=== PATIENT | female | born 1955 | race Caucasian/White ===

== ENCOUNTER 2017-08-02 10:59 | Outpatient (CLI) | payer OTHER ==
--- NOTE | 2017-08-03 18:32 | Mammography Report ---
DIGITAL SCREENING MAMMOGRAM: 08/02/2017 CLINICAL INDICATION: A 61-year-old for screening. COMPARISON: 05/2016, 02/2015, 10/2013, 09/2012, 07/2011, 06/2010. TECHNIQUE: Routine CC and MLO projections were obtained of the breasts. FINDINGS: Scattered fibroglandular tissue is present within the breasts. There are no dominant mass es, suspicious microcalcifications, or secondary signs of malignancy. In comparison to the previous studies, there are no significant changes. ASSESSMENT: NO MAMMOGRAPHIC EVIDENCE OF MALIGNANCY. NO SIGNIFICANT INTERVAL CHANGES. RECOMMENDATION: Screening mammography is recommended annually. BIRADS category 1 - negative. STANDARD QUALIFYING STATEMENTS 1. This examination was reviewed with the aid of Computed-Aided Detection (CAD). 2. A negative or benign imaging report should not delay biopsy if clinically suspicious findings are present. Consider surgical consultation if warranted. More than 5% of cancers are not identified b y imaging. 3. Dense breasts may obscure an underlying neoplasm. JOB #: [id number] EXT JOB #:[id number]
== END 2017-08-02 11:00 | disposition home or self-care (01) ==
LOC: DI 10:59
PROVIDERS: ATTEND Physician Assistant Medical
DX: Z12.31 Encounter for screening mammogram for malignant neoplasm of breast (principal)
CPT/HCPCS: 77067

== ENCOUNTER 2018-10-05 11:42 | Outpatient (CLI) | payer OTHER ==
--- NOTE | 2018-10-08 09:36 | Mammography Report ---
Reason: SCREENING MAMMO Procedure Date: 10/05/2018 Accession Number: [id number] / [id number] Procedure: TONYA - Screening Mammo w/Neil CPT Code: FULL RESULT: EXAM: Screening Mammo w/Neil DATE: 10/05/2018 12:11 PM CLINICAL HISTORY: Screening encounter. History of bilateral surgical nipple biopsy in 1994. History of 20 years of hormonal therapy discontinued in 1994. TECHNIQUE: Bilateral CC and MLO views were obtained. COMPARISON: 08/02/2017 through 10/31/2013. FINDINGS: The breasts demonstrate scattered fibroglandular densities bilaterally. The ultrasound characterized left breast cyst in the left breast lower outer quadrant is stable, typically benign. No suspicious masses, clustered microcalcifications, or regions of architectural distortion are identified. IMPRESSION: Benign findings RECOMMENDATION: Routine annual screening unless otherwise clinically indicated. BIRADS CATEGORY 2: Benign findings STANDARD QUALIFYING STATEMENTS: 1. This examination was not reviewed with the aid of Computer-Aided Detection (CAD). 2. A negative or benign imaging report should not preclude biopsy if clinically suspicious findings are present. 3. Dense breasts may obscure an underlying neoplasm. 4. This examination was reviewed with the aid of 3D breast imaging (tomosynthesis).
== END 2018-10-05 11:43 | disposition home or self-care (01) ==
LOC: DI 11:42
DX: Z12.31 Encounter for screening mammogram for malignant neoplasm of breast (principal)
CPT/HCPCS: 77063; 77067

== ENCOUNTER 2019-06-04 12:06 | Outpatient (CLI) | payer OTHER ==
[2019-06-04 12:28] LABS: BASOPHILS # (AUTO) 0.1 10^3/uL (0.0-0.1); BASOPHILS % (AUTO) 0.5 %; EOSINOPHILS # (AUTO) 0.1 10^3/uL (0.0-0.7); HGB - HEMOGLOBIN 13.4 g/dL (12.0-16.0); LYMPHOCYTES # (AUTO) 1.8 10^3/uL (1.5-3.5); LYMPHOCYTES % (AUTO) 17.2 %; MEAN CORPUSCULAR HEMOGLOBIN 28.7 pg (27.0-31.0); MEAN CORPUSCULAR HGB CONC 31.6 g/dL (32.0-36.0); MEAN CORPUSCULAR VOLUME 90.8 fL (81.0-99.0); MEAN PLATELET VOLUME 9.2 fL (7.9-10.8); MONOCYTES % (AUTO) 9.5 %; NEUTROPHILS # (AUTO) 7.5 10^3/uL (1.5-6.6); NEUTROPHILS % (AUTO) 71.5 %; PLT - PLATELET COUNT 262 10^3/uL (130-450); RED BLOOD COUNT 4.67 10^6/uL (4.20-5.40); RED CELL DISTRIBUTION WIDTH 13.6 % (12.0-15.0); WHITE BLOOD COUNT 10.5 x10^3/uL (4.8-10.8)
[2019-06-04 12:49] LABS: ALBUMIN 4.5 g/dL (3.2-5.5); ALBUMIN/GLOBULIN RATIO 1.5 (1.0-2.2); BILIRUBIN,TOTAL 1.1 mg/dL (0.2-1.0); CALCIUM 9.4 mg/dL (8.5-10.3); CREATININE 0.6 mg/dL (0.4-1.0); TOTAL PROTEIN 7.6 g/dL (6.7-8.2)
== END 2019-06-04 12:07 | disposition home or self-care (01) ==
LOC: LAB 12:06
PROVIDERS: ATTEND Obstetrics & Gynecology
DX: Z01.810 Encounter for preprocedural cardiovascular examination (principal); Z01.812 Encounter for preprocedural laboratory examination; N81.4 Uterovaginal prolapse, unspecified
CPT/HCPCS: 36415; 80053; 85025; 86850; 86900; 86901; 93005

== ENCOUNTER 2019-06-05 10:19 | Day surgery (SDC) | payer OTHER ==
[2019-06-05] MEDS ORDERED: MIDAZOLAM 2 MG/2 ML VIAL IVP ONE (10:20)
[2019-06-05] MEDS ORDERED: CEFAZOLIN SODIUM IN 0.9 % NACL 2 GM/100 ML BAG IV ONE (10:38)
[2019-06-05 10:44] VITALS: BP 152/74
[2019-06-05] MEDS ORDERED: BUPIVACAINE 0.5% PF 10 ML VIAL ONE (11:45)
[2019-06-05] MEDS ORDERED: BUPIVACAINE 0.5%-EPI 1:200000 PF 10 ML VIAL ONE (11:46)
--- NOTE | 2019-06-05 11:51 | ANESTHESIA ---
Pre-Anesthesia VS, & Labs - Diagnosis uterine prolapse, rectocele, cystocele - Procedure Laparoscopic assisted vaginal hysterectomy, cystoscopy, A/P repair, colporrhaphy Vital Signs: Temp Pulse Resp BP Pulse Ox 36.2 C L 80 16 152/74 H 99 06/05/19 10:41 06/05/19 10:41 06/05/19 10:41 06/05/19 10:41 06/05/19 10:41 Height 6 ft Weight (kg) 86.2 kg - NPO >8 hours - Is Patient ?: No - Lab Results Lab results reviewed: Yes Home Medications and Allergies Home Medications: Ambulatory Orders Estrogens, Conjugated Cream [Premarin Cream] 1 applic VG QPM 06/04/19 Gabapentin 300 mg PO DAILY 06/04/19 Multivitamin [Multivitamins] 1 each PO DAILY 06/04/19 Propranolol HCl [Propranolol HCl ER] 60 mg PO BID 06/04/19 Triamterene/Hydrochlorothiazid [Triamterene-Hctz 37.5-25 mg Tb] 1 each PO DAILY 06/04/19 raNITIdine HCl [Zantac] 150 mg PO QPM 06/04/19 Rosuvastatin Calcium [Crestor] 10 mg PO DAILY 06/22/14 Estrogens, Conjugated Cream [Premarin Cream] 1 applic VG QPM 06/04/19 Gabapentin 300 mg PO DAILY 06/04/19 Multivitamin [Multivitamins] 1 each PO DAILY 06/04/19 Propranolol HCl [Propranolol HCl ER] 60 mg PO BID 06/04/19 Triamterene/Hydrochlorothiazid [Triamterene-Hctz 37.5-25 mg Tb] 1 each PO DAILY 06/04/19 raNITIdine HCl [Zantac] 150 mg PO QPM 06/04/19 Allergies/Adverse Reactions: Allergies Allergy/AdvReac Type Severity Reaction Status Date / Time Sulfa (Sulfonamide Allergy Intermediate Rash Verified 06/05/19 10:55 Antibiotics) Penicillins Allergy Mild Rash Verified 06/05/19 10:55 atorvastatin [From Lipitor] AdvReac muscle Verified 06/05/19 10:55 cramps simvastatin [From Zocor] AdvReac Nausea Verified 06/05/19 10:55 Anes History & Medical History - Anesthetic History Anesthesia Complications: reports: No previous complications Family history of Anesthesia Complications: Denies Family history of Malignant Hyperthermia: Denies - Medical History Cardiovascular: reports: Hypertension, High cholesterol, Atrial fibrillation, Arrhythmia Pulmonary: reports: None Gastrointestinal: reports: GERD Urinary: reports: Other Musculoskeletal: reports: None Endocrine/Autoimmune: reports: None Skin: reports: None Smoking Status: Never smoker - Surgical History Eyes Ears Nose Throat (EENT): Tonsil/Adenoidectomy Cardiothoracic: Other (ablation x4, cardioversion x5 (all effective)) Orthopedic: Other Exam General: Alert, Oriented x3, Cooperative Dental: WNL Mouth Openin Fingerbreadth Neck Mobility: Normal Mallampati classification: II Thyromental Distance: 4-6 cm Respiratory: Lungs clear, Normal breath sounds, No respiratory distress, No accessory muscle use Cardiovascular: Regular rate Neurological: Normal speech Mental/Cognitive Status: Alert/Oriented X3, Normal for patient Cognitive Status: Within normal limits Plan Anesthesia Type: General, Transverse Abdominis Plane (TAP) Block (possible) Consent for Procedure(s) Verified and Reviewed: Yes Code Status: Attempt Resuscitation ASA classification: 3-Severe systemic disease Is this case an emergency?: No
[2019-06-05] MEDS ORDERED: METHYLENE BLUE 0.5% 50 MG/10 ML AMPULE ONE (12:25)
[2019-06-05] MEDS ORDERED: LACTATED RINGERS 1,000 ML IV ONE (12:36)
--- NOTE | 2019-06-05 19:39 | CONSULTATION NOTE ---
DATE OF SERVICE: 06/05/2019 Physician: Meeta Wolfe MD PRIMARY CARE PROVIDER: Lesa Medina PA-C CONSULTANT: Paolo Villaseñor MD REASON FOR CONSULTATION: New arrhythmia on telemetry in a preoperative patient. HISTORY: Patient is a anika 63-year-old female who has had 3 ablations for AFib. Two were done at [facility]. When the second ablation was not successful, patient was sent to see yet another EPS specialist at [facility] named Dr. Solorio. Dr. Solorio was contacted at [facility] via the internet Google search for his address. He is no longer at [facility]. I was not aware he was at [facility] now until after I contacted the first group who did the first two ablations, but I did speak to Dr. Leavitt's cardiology team at [facility] about this patient's history. She had a successful ablation in 2014. She can occasionally feel hard knocking in her chest, but for the most part, she has remained in sinus rhythm. She denies chest pain, palpitations, shortness of breath. She was evaluated prior to having elective surgery today for a hysterectomy and anterior and posterior repair. Yesterday's EKG showed sinus rhythm and the patient had a review of systems that was negative. In the preoperative setting, as she was lying on the table, getting ready for surgery, she began feeling palpitations. An EKG was done. She is predominantly sinus with PACs, but there is a question if atrial fibrillation has returned. I am being asked to do a consultation. The surgery has already been canceled. PAST MEDICAL HISTORY 1. Hypertension. 2. Atrial fibrillation as above. 3. Hyperlipidemia. 4. Gastroesophageal reflux disease. ALLERGIES 1. SULFA. 2. PENICILLIN. 3. LIPITOR. 4. ZOCOR. MEDICATIONS 1. Conjugated estrogen via cream 3 times a week in the vagina. 2. Gabapentin 300 mg daily. 3. Multivitamin daily. 4. Propranolol extended release 60 mg capsule b.i.d. 5. Zantac 150 q.p.m. 6. Crestor 10 mg daily. 7. Triamterene with hydrochlorothiazide at 37.54/25 mg daily. SOCIAL HISTORY: She is a nonsmoker, rare alcohol drinker. No recreational substance abuse. FAMILY HISTORY: Negative for arrhythmia or prolonged QT syndrome. REVIEW OF SYSTEMS: A full 10-point review of systems done and negative except for that in HPI. PHYSICAL EXAMINATION VITAL SIGNS: Temperature is 36.2, pulse is 80, blood pressure 152/74, respirations 16, 99% on room air. GENERAL: She is a well-nourished, well-developed white female who looks her stated age in no acute distress. Very matter of fact personality saying, "I'm ready whenever you guys are." HEAD AND NECK: Unremarkable. She has got moist oral mucosa. Normal facial symmetry. Normal speech patterns. Pupils are reactive. Neck is supple. No goiter or bruits or JVD. LUNGS: Clear to auscultation and percussion. She has a mainly regular rate and rhythm with occasional irregular beat. No murmurs, rubs or gallops. HEART: PMI is normally placed. ABDOMEN: Soft, nontender. No organomegaly. Normal bowel sounds. EXTREMITIES: Warm without clubbing, cyanosis or edema. NEUROLOGIC: She is alert and oriented to person, place and time. Has no focal deficits with regard to strength or reflexes. Cranial nerves II-XII appear grossly intact. IMAGING: EKG shows mainly sinus rhythm. Very difficult to see the P-waves. Tele strip shows occasionally every other P-wave not being conducted. EKG and tele strip reviewed with Dr. Filippo Wilde, [facility], since Dr. 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 LABORATORIES: Preoperative labs showed a normal CMP with a mildly elevated bilirubin of 1.1. Hematology showed a normal CBC. ASSESSMENT AND PLAN: Abnormal EKG with a history of atrial fibrillation, s/p ablation. Currently, the EKG shows normal sinus rhythm with occasional nonconducted P-waves. Dr. Wilde feels that this patient is within the realm of normal. The insufflation expected with laparoscopic surgery may cause some bradycardia, but that is to be anticipated he feels. Dr. Wilde feels that patient can go to surgery at this time. However, gynecology would like patient to be seen by Cardiology in person. Once that is done, then he can reschedule this elective hysterectomy. There is no change made to patient's medication. Thank you very much for this interesting consult. TD: 06/05/2019 19:16 DOLLY
== END 2019-06-05 10:20 | disposition home or self-care (01) ==
LOC: SDS 10:19
PROVIDERS: ATTEND Obstetrics & Gynecology
DX: Z53.8 Procedure and treatment not carried out for other reasons (principal); N81.4 Uterovaginal prolapse, unspecified; N81.6 Rectocele; I49.9 Cardiac arrhythmia, unspecified; I10 Essential (primary) hypertension; I48.91 Unspecified atrial fibrillation; E78.5 Hyperlipidemia, unspecified; K21.9 Gastro-esophageal reflux disease without esophagitis
CPT/HCPCS: 93005; J0690; J7120

== ENCOUNTER 2019-08-29 08:00 | Outpatient (CLI) | payer OTHER ==
[2019-08-29 18:53] LABS: BASOPHILS # (AUTO) 0.1 10^3/uL (0.0-0.1); BASOPHILS % (AUTO) 0.6 %; EOSINOPHILS # (AUTO) 0.1 10^3/uL (0.0-0.7); EOSINOPHILS % (AUTO) 1.4 %; HGB - HEMOGLOBIN 13.4 g/dL (12.0-16.0); LYMPHOCYTES # (AUTO) 1.8 10^3/uL (1.5-3.5); MEAN CORPUSCULAR HEMOGLOBIN 29.1 pg (27.0-31.0); MEAN CORPUSCULAR HGB CONC 31.2 g/dL (32.0-36.0); MEAN CORPUSCULAR VOLUME 93.1 fL (81.0-99.0); MEAN PLATELET VOLUME 10.1 fL (7.9-10.8); MONOCYTES # (AUTO) 0.8 10^3/uL (0.0-1.0); NEUTROPHILS # (AUTO) 6.8 10^3/uL (1.5-6.6); NEUTROPHILS % (AUTO) 70.5 %; PLT - PLATELET COUNT 282 10^3/uL (130-450); RED BLOOD COUNT 4.61 10^6/uL (4.20-5.40); RED CELL DISTRIBUTION WIDTH 13.6 % (12.0-15.0); WHITE BLOOD COUNT 9.6 x10^3/uL (4.8-10.8)
[2019-08-29 19:22] LABS: THYROID STIMULATING HORMONE 0.96 uIU/mL (0.34-5.60)
[2019-08-29 19:23] LABS: ALBUMIN 4.5 g/dL (3.2-5.5); ALBUMIN/GLOBULIN RATIO 1.5 (1.0-2.2); BILIRUBIN,TOTAL 0.9 mg/dL (0.2-1.0); CALCIUM 9.4 mg/dL (8.5-10.3); CREATININE 0.7 mg/dL (0.4-1.0); TOTAL PROTEIN 7.6 g/dL (6.7-8.2)
[2019-08-29 19:24] LABS: FREE T4 (FREE THYROXINE) 0.8 ng/dL (0.58-1.64)
== END 2019-08-29 23:59 | disposition home or self-care (01) ==
LOC: LAB.WCP 08:00
PROVIDERS: ATTEND Physician Assistant
DX: L29.8 Other pruritus (principal)
CPT/HCPCS: 36415; 80053; 81599; 83540; 84439; 84443; 84466; 85025

== ENCOUNTER 2019-08-29 15:18 | Outpatient (CLI) | payer OTHER ==
--- NOTE | 2019-08-30 09:39 | XRAY Report ---
Reason: RIGHT FOOT PAIN Procedure Date: 08/29/2019 Accession Number: [id number] / [id number] Procedure: WCP - Foot 3 View RT CPT Code: Final Report FULL RESULT: EXAM: RIGHT FOOT RADIOGRAPHY EXAM DATE: 08/29/2019 03:18 PM. CLINICAL HISTORY: Right foot pain. COMPARISON: None. TECHNIQUE: 3 views. FINDINGS: Bones: Plantar calcaneal spur. No acute fractures or bone lesions. Possible old fracture of the proximal phalanx of the fourth toe. Joints: Normal. No subluxations. Soft Tissues: Normal. No soft tissue swelling. IMPRESSION: 1. No acute abnormality seen in the right foot. 2. Plantar calcaneal spur. RADIA
== END 2019-08-29 23:59 | disposition home or self-care (01) ==
LOC: DI.WCP 15:18
PROVIDERS: ATTEND Family Medicine
DX: M77.31 Calcaneal spur, right foot (principal); L29.8 Other pruritus

== ENCOUNTER 2019-09-05 08:00 | Outpatient (CLI) | payer OTHER | END 2019-09-05 23:59 | disposition home or self-care (01) | LOC: LAB.R 08:00 | PROVIDERS: ATTEND Physician Assistant | DX: L29.8 Other pruritus (principal) | CPT/HCPCS: 87177; 87209 ==

== ENCOUNTER 2019-12-26 08:00 | Outpatient (CLI) | payer OTHER ==
[2019-12-26 16:29] LABS: BASOPHILS # (AUTO) 0.1 10^3/uL (0.0-0.1); BASOPHILS % (AUTO) 0.5 %; EOSINOPHILS # (AUTO) 0.2 10^3/uL (0.0-0.7); EOSINOPHILS % (AUTO) 1.6 %; HGB - HEMOGLOBIN 13.4 g/dL (12.0-16.0); LYMPHOCYTES % (AUTO) 20.5 %; MEAN CORPUSCULAR HEMOGLOBIN 29.7 pg (27.0-31.0); MEAN CORPUSCULAR HGB CONC 32.1 g/dL (32.0-36.0); MEAN CORPUSCULAR VOLUME 92.7 fL (81.0-99.0); MEAN PLATELET VOLUME 10.3 fL (7.9-10.8); MONOCYTES # (AUTO) 0.9 10^3/uL (0.0-1.0); MONOCYTES % (AUTO) 9.2 %; NEUTROPHILS # (AUTO) 6.8 10^3/uL (1.5-6.6); NEUTROPHILS % (AUTO) 67.9 %; PLT - PLATELET COUNT 266 10^3/uL (130-450); RED BLOOD COUNT 4.51 10^6/uL (4.20-5.40); RED CELL DISTRIBUTION WIDTH 13.2 % (12.0-15.0); WHITE BLOOD COUNT 9.9 x10^3/uL (4.8-10.8)
[2019-12-26 16:49] LABS: ALBUMIN 4.5 g/dL (3.2-5.5); ALBUMIN/GLOBULIN RATIO 1.5 (1.0-2.2); BILIRUBIN,TOTAL 1.2 mg/dL (0.2-1.0); CALCIUM 9.3 mg/dL (8.5-10.3); CREATININE 0.7 mg/dL (0.4-1.0); TOTAL PROTEIN 7.5 g/dL (6.7-8.2)
== END 2019-12-26 23:59 | disposition home or self-care (01) ==
LOC: LAB.WCP 08:00
PROVIDERS: ATTEND Physician Assistant Medical
DX: I48.91 Unspecified atrial fibrillation (principal)
CPT/HCPCS: 36415; 80053; 84443; 85025

== ENCOUNTER 2020-02-11 10:10 | Outpatient (CLI) | payer OTHER ==
--- NOTE | 2020-02-11 12:46 | MRI Report ---
Reason: ACUTE RT LATERAL ANKLE PAIN Procedure Date: 02/11/2020 Accession Number: [id number] / [id number] Procedure: MRI - Ankle RT W/O CPT Code: Final Report FULL RESULT: EXAM: RIGHT ANKLE/HINDFOOT MRI WITHOUT CONTRAST EXAM DATE: 02/11/2020 11:23 AM. CLINICAL HISTORY: Acute right lateral ankle pain. COMPARISON: FOOT 3 VIEW RT 08/29/2019 2:55 PM. TECHNIQUE: Multiplanar, multisequence T1-weighted and fluid-sensitive sequences of the ankle/hindfoot without contrast. Other: None. FINDINGS: Bones: There is a transverse, nondisplaced fracture of the base of the third metatarsal with extensive surrounding marrow edema. There is moderate edema of the base of the fourth metatarsal, second metatarsal and lateral cuneiform, which is suggestive of contusions. There is subarticular sclerosis and edema at the first tarsometatarsal joint consistent with osteoarthritis. There is a small focus of subchondral edema in the anterior surface of the talar head, suggestive of a prior contusion. Articular Cartilage: Osteoarthritis at the first tarsometatarsal joint. The ankle joint cartilage appears normal. Ligaments: The anterior and posterior tibiofibular ligaments are intact. There is a grade 3 tear of the anterior talofibular ligament, and a grade 2 tear of the calcaneofibular ligament. The posterior talofibular ligament is intact. The deep and superficial deltoid and spring ligaments are intact. Anterior Tendons: The tibialis anterior, extensor hallucis longus, and extensor digitorum longus tendons are unremarkable. Medial Tendons: The tibialis posterior, flexor digitorum longus, and flexor hallucis longus tendons are unremarkable. Lateral Tendons: Both the peroneus longus and brevis appear thickened with increased T1 and T2 signal posterior to the lateral malleolus. Both tendons have lost their normal configuration throughout their visible length. The findings are consistent with tendinosis and partial-thickness tears. Achilles Tendon: The Achilles tendon appears thickened throughout its visible length, consistent with the given clinical history of prior Achilles tendon repair. There is no appreciable recurrent tear. The tendon has near normal signal intensity. Musculature: No edema or fatty atrophy. Other: There is subcutaneous edema of the hindfoot. The contents of the sinus tarsi and tarsal tunnel are unremarkable. The planter fascia appears thickened with increased T1 and T2 signal, consistent with plantar fasciitis. The subcutaneous tissues are unremarkable. IMPRESSION: 1. Nondisplaced fracture of the base of the third metatarsal. Edema of the second and fourth metatarsal bases and the lateral cuneiform which may indicate contusions. 2. Tendinosis and partial-thickness tearing of both the peroneus brevis and longus. 3. Old grade 3 tear of the anterior talofibular ligament and grade 2 tear of the calcaneofibular ligament. 4. Mild degenerative change of the first tarsometatarsal joint. 5. Prior Achilles tendon repair. 6. Planter fasciitis. RADIA
== END 2020-02-11 10:11 | disposition home or self-care (01) ==
LOC: DI 10:10
PROVIDERS: ATTEND Podiatrist
DX: S92.334A Nondisplaced fracture of third metatarsal bone, right foot, initial encounter for closed fracture (principal); S96.811A Strain of other specified muscles and tendons at ankle and foot level, right foot, initial encounter; S93.491A Sprain of other ligament of right ankle, initial encounter; S93.411A Sprain of calcaneofibular ligament of right ankle, initial encounter; M72.2 Plantar fascial fibromatosis; M19.071 Primary osteoarthritis, right ankle and foot

== ENCOUNTER 2020-03-13 09:38 | Outpatient (CLI) | payer OTHER ==
--- NOTE | 2020-03-16 09:28 | Mammography Report ---
BILATERAL DIGITAL SCREENING MAMMOGRAM 3D/2D: 03/13/2020 CLINICAL: Routine screening. Comparison is made to exams dated: 10/05/2018 mammogram, 08/02/2017 mammogram, and 06/09/2016 mammogra m - [facility]. There are scattered fibroglandular elements in both breasts. No significant masses, calcifications, or other findings are seen in either breast. There has been no significant interval change. IMPRESSION: NEGATIVE There is no mammographic evidence of malignancy. A 1 year screening mammogram is recommended. This exam was interpreted at Station ID: [id number]. NOTE: For mammograms, a report in lay terms will be sent to the patient. Approximately 15% of breast malignancies will not be visualized mammographically. In the management of a palpable breast mass, a negative mammogram must not discourage biopsy of a clinically suspicious lesion. Electronically Signed By: Ave martínez/everrad:03/13/2020 11:28:29 ACR BI-RADS Category 1: Negative 3341F PARENCHYMAL PATTERN: (A) - The breast(s) demonstrate(s) scattered fibroglandular densities. BI-RADS CATEGORY: (1) - 1 RECOMMENDATION: (ANNUAL) - Recommend routine annual screening mammography. [id number] 1 year screening LATERALITY: (B)
== END 2020-03-13 09:39 | disposition home or self-care (01) ==
LOC: DI 09:38
DX: Z12.31 Encounter for screening mammogram for malignant neoplasm of breast (principal)
CPT/HCPCS: 77063; 77067

== ENCOUNTER 2020-07-24 10:39 | Outpatient (CLI) | payer OTHER ==
--- NOTE | 2020-07-24 17:30 | DEXA Report ---
PROCEDURE: Dexa Spine and/or Hip INDICATIONS: POSTMENOPAUSAL TECHNIQUE: Dual energy x-ray absorptiometry (DXA) was performed on a Curasight System. Regions measur ed are the AP Spine, femoral neck, and if needed forearm. COMPARISON: None. FINDINGS: Lumbar Spine: Bone Mineral Density 1.305 g/cm/cm,T score 0.9, normal Left Hip: Bone Mineral Density 1.113 g/cm/cm,T score 0.8, normal Left Femoral Neck: Bone Mineral Density 1.038 g/cm/cm, T score 0.0, normal (T score greater or equal to -1.0: NORMAL) (T score from -1.1 to -2.4: OSTEOPENIA) (T score less than or equal to -2.5 to: OSTEOPOROSIS) Impression: Normal bone mineral density. Patients with diagnosis of osteoporosis or osteopenia should have regular bone mineral density assess ment. For those eligible for Medicare, routine testing is allowed once every 2 years. Testing frequ ency can be increased for patients who have rapidly progressing disease or for those who are receivin g medical therapy to restore bone mass. Reviewed by: Samantha Thomas MD, PhD on 07/24/2020 5:29 PM PST Approved by: Samantha Thomas MD, PhD on 07/24/2020 5:29 PM PST Station ID: [id number]
== END 2020-07-24 10:40 | disposition home or self-care (01) ==
LOC: DI 10:39
PROVIDERS: ATTEND Physician Assistant Medical
DX: Z78.0 Asymptomatic menopausal state (principal)
CPT/HCPCS: 77080

== ENCOUNTER 2021-05-05 08:17 | Outpatient (CLI) | payer OTHER ==
--- NOTE | 2021-05-05 09:05 | XRAY Report ---
PROCEDURE: Hip w/Pelvis 1V LT INDICATIONS: L HIP PX TECHNIQUE: AP pelvis with lateral view(s) of the left hip(s). COMPARISON: None. FINDINGS: Bones: No fractures or dislocations. Pelvic ring appears intact. No suspicious bony lesions. Soft tissues: The visualized bowel gas pattern is normal. No suspicious soft tissue calcifications. IMPRESSION: There is symmetric moderate hip joint osteoarthritis, no trauma found. Reviewed by: Subhash Hester MD on 05/05/2021 9:04 AM PDT Approved by: Subhash Hester MD on 05/05/2021 9:04 AM PDT Station ID: [id number]
== END 2021-05-05 08:18 | disposition home or self-care (01) ==
LOC: DI.N 08:17
PROVIDERS: ATTEND Physician Assistant Medical
DX: M16.0 Bilateral primary osteoarthritis of hip (principal)

== ENCOUNTER 2021-05-27 09:17 | Outpatient (CLI) | payer OTHER ==
--- NOTE | 2021-05-28 10:34 | Mammography Report ---
BILATERAL DIGITAL SCREENING MAMMOGRAM 3D/2D: 05/27/2021 CLINICAL: Routine screening. Comparison is made to exams dated: 03/13/2020 mammogram, 03/13/2020 mammogram, 10/05/2018 mammogram, mammogram, 06/09/2016 mammogram, and 06/09/2016 ultrasound - [facility]. Th ere are scattered fibroglandular elements in both breasts. No significant masses, calcifications, or other findings are seen in either breast. There has been no significant interval change. IMPRESSION: NEGATIVE There is no mammographic evidence of malignancy. A 1 year screening mammogram is recommended. This exam was interpreted at Station ID: [id number]. NOTE: For mammograms, a report in lay terms will be sent to the patient. Approximately 15% of breast malignancies will not be visualized mammographically. In the management of a palpable breast mass, a negative mammogram must not discourage biopsy of a clinically suspicious lesion. Electronically Signed By: Jarred Gloria M.D. [email or web address]/kameron:05/27/2021 12:10:11 ACR BI-RADS Category 1: Negative 3341F PARENCHYMAL PATTERN: (A) - The breast(s) demonstrate(s) scattered fibroglandular densities. BI-RADS CATEGORY: (1) - 1 RECOMMENDATION: (ANNUAL) - Recommend routine annual screening mammography. [id number] 1 year screening LATERALITY: (B)
== END 2021-05-27 09:18 | disposition home or self-care (01) ==
LOC: DI.N 09:17
DX: Z12.31 Encounter for screening mammogram for malignant neoplasm of breast (principal)

== ENCOUNTER 2022-07-27 10:22 | Outpatient (CLI) | payer MEDICARE, OTHER | END 2022-07-27 10:23 | disposition home or self-care (01) | LOC: DI.N 10:22 | PROVIDERS: ATTEND Physician Assistant Medical | DX: Z53.9 Procedure and treatment not carried out, unspecified reason (principal) ==

== ENCOUNTER 2022-07-27 11:10 | Outpatient (CLI) | payer MEDICARE, OTHER ==
--- NOTE | 2022-07-27 11:49 | XRAY Report ---
PROCEDURE: Foot 3 View LT INDICATIONS: FOOT PAIN, LEFT TECHNIQUE: 3 views of the foot were acquired. COMPARISON: None FINDINGS: Bones: There is severe degenerative change involving the tarsal metatarsal joints. I do not see evidence for acute fracture or dislocation. There is a calcaneal spur at insertion of the plantar fascia. Soft tissues: No tibiotalar joint effusion. Achilles tendon appears normal. IMPRESSION: 1. Severe degenerative change involving the tarsal metatarsal joints. 2. Calcaneal heel spur. 3. No evidence for acute osseous abnormality seen. Reviewed by: Sudheer Bellamy MD on 07/27/2022 11:48 AM [facility] Approved by: Sudheer Bellamy MD on 07/27/2022 11:48 AM [facility] Station ID: [id number]
== END 2022-07-27 11:11 | disposition home or self-care (01) ==
LOC: DI 11:10
PROVIDERS: ATTEND Physician Assistant Medical
DX: M19.071 Primary osteoarthritis, right ankle and foot (principal); M77.32 Calcaneal spur, left foot

== ENCOUNTER 2022-10-05 12:53 | Outpatient (CLI) | payer MEDICARE, OTHER ==
--- NOTE | 2022-10-06 12:16 | Mammography Report ---
BILATERAL DIGITAL SCREENING MAMMOGRAM 3D/2D: 10/05/2022 CLINICAL: Routine screening. Comparison is made to exams dated: 05/27/2021 mammogram, 03/13/2020 mammogram, 03/13/2020 mammogram, 09/18 mammogram, 08/02/2017 mammogram, and 06/09/2016 mammogram - [facility]. There are scattered areas of fibroglandular density in both breasts (category b / 25%-50% glandular t issue). No significant masses, calcifications, or other findings are seen in either breast. There has been no significant interval change. IMPRESSION: NEGATIVE There is no mammographic evidence of malignancy. A 1 year screening mammogram is recommended. Based on the Tyrer Cuzick model (a risk assessment model) the patients lifetime risk is 5.8% and her 10 year risk is 2.8%. According to the ACR, ACS, and NCCN guidelines, an annual breast MRI exam myra g with mammogram is recommended if the patients lifetime risk is 20% or greater. This exam was interpreted at Station ID: [id number]. NOTE: For mammograms, a report in lay terms will be sent to the patient. Approximately 15% of breast malignancies will not be visualized mammographically. In the management of a palpable breast mass, a negative mammogram must not discourage biopsy of a clinically suspicious lesion. Electronically Signed By: Cathleen anderson/kameron:10/05/2022 16:15:32 ACR BI-RADS Category 1: Negative 3341F PARENCHYMAL PATTERN: (A) - The breast(s) demonstrate(s) scattered fibroglandular densities. BI-RADS CATEGORY: (1) - 1 RECOMMENDATION: (ANNUAL) - Recommend routine annual screening mammography. [id number] 1 year screening LATERALITY: (B)
== END 2022-10-05 12:54 | disposition home or self-care (01) ==
LOC: DI 12:53
DX: Z12.31 Encounter for screening mammogram for malignant neoplasm of breast (principal)

== ENCOUNTER 2023-04-18 08:13 | Outpatient (CLI) | payer MEDICARE, OTHER ==
--- NOTE | 2023-04-18 21:37 | MRI Report ---
PROCEDURE: ANKLE WO - LT INDICATIONS: CHARCOT'S JOINT, LEFT ANKLE AND FOOT TECHNIQUE: Noncontrast sagittal T1 spin echo and T2 fast spin echo with fat saturation, axial proton density fas t spin echo and T2 fast spin echo with fat saturation, coronal T1 spin echo and T2 fast spin echo wit h fat saturation through the ankle/hindfoot. COMPARISON: None. FINDINGS: Image quality: Excellent. Bones and joints: Extensive Marrow edema throughout tarsal bones and visualized metatarsal bases are seen without discrete fractu re line. Moderate to severe osteoarthritic changes also noted throughout midfoot and hindfoot joints most notably involving TMT joints. There is slight collapse of midfoot arch. Small tibiotalar joint e ffusion is seen. No osteochondral injuries of the talar dome. Small plantar and dorsal calcaneal enth esophytes are seen. Medial structures: The posterior tibialis, flexor digitorum longus, and flexor hallucis longus tendo ns are thickened with intrasubstance T2 hyperintense signal at the level of talonavicular joint exten ding to the level of TMT joints. Finding is most pronounced involving posterior tibialis tendon. The posterior tibial neurovascular bundle appears normal within the tarsal tunnel, without extrinsic mass effect. The deltoid ligament and spring ligament are thickened. Lateral structures: There is high-grade partial thickness tear involving anterior talofibular ligamen t. The calcaneofibular ligament and posterior talofibular ligament are mildly thickened. More superio rly, the anterior tibiofibular ligament is thickened with intrasubstance T2 hyperintense signal. The posterior tibiofibular ligament is intact. The tibiofibular syndesmosis is normal in width at 2 mm o r less. The peroneus longus and brevis tendons are thickened in the midfoot extending to the level o f TMT joints with intrasubstance T2 hyperintense signal. There is edema within sinus tarsi.. Anterior structures: The tibialis anterior, extensor hallucis longus, and extensor digitorum longus tendons appear thickened at the level anterior to the tibiotalar joint. Posterior and plantar structures: Achilles tendon is intact. Medial and lateral bands of the planta r fascia are of normal thickness. No abductor digiti quinti muscle atrophy to suggest Alejandra neuropa thy. IMPRESSION: 1. Moderate to severe midfoot and hindfoot joint osteoarthritis particularly involving mid foot joint s with extensive marrow edema and slight collapse of midfoot arch as described above suggestive of Ch arcot's arthropathy. No definite fracture or dislocation. No osteochondral injuries of talar dome. Sm all tibiotalar joint effusion, no loose bodies. 2. Moderate tendinosis and low-grade intrasubstance partial thickness tear involving posterior tibial is tendon at the level of midfoot. Tendinosis involving flexor digitorum longus and flexor hallucis l ongus tendons at the level of midfoot. 3. Low-grade medial ankle ligament sprain. 4. High-grade partial thickness to full-thickness rupture involving anterior talofibular ligament. Lo w-grade sprain involving calcaneofibular ligament and posterior talofibular ligament. Low-grade intra substance partial thickness involving anterior tibiofibular ligament. 5. Tendinosis and low-grade intrasubstance partial thickness tear involving peroneus tendons at the l evel of midfoot joints. 6. 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 7. Thickened extensor tendons at the level anterior to the tibiotalar joint suggestive of tendinosis. Reviewed by: Misael Gutiérrez MD on 04/18/2023 9:36 PM PDT Approved by: Misael Gutiérrez MD on 04/18/2023 9:36 PM PDT Station ID: [id number]
--- NOTE | 2023-04-18 21:47 | MRI Report ---
PROCEDURE: FOOT WO - LT INDICATIONS: CHARCOT'S JOINT, LEFT ANKLE AND FOOT TECHNIQUE: Noncontrast sagittal T1 spin echo and T2 fast spin echo with fat saturation, long-axis T1 spin echo a nd T2 fast spin echo with fat saturation, short-axis proton density fast spin echo and T2 fast spin e cho with fat saturation through the forefoot. COMPARISON: None. FINDINGS: Image quality: Excellent. Bones and joints: Severe midfoot joint osteoarthritis with significant joint space narrowing, extensi ve subchondral sclerosis and cyst formation and marrow edema throughout visualized tarsal bones and m etatarsal shafts. Mild to moderate forefoot joint osteoarthritic changes also seen. There is deformit y involving second metatarsal neck concerning for slightly displaced fracture in this area. Edema and linear hypointense signal involving third metatarsal head and fifth metatarsal neck suggestive of ea rly stress fractures. Significant marrow edema involving first metatarsal shaft with disruption of pl rosamaria cortex near first metatarsal neck concerning for early developing stress fracture. Soft tissues: The visualized plantar foot muscles demonstrate significant edema suggestive of muscle strain. Visualized flexor and extensor tendons appear intact, without tenosynovitis. Lisfranc liga ment is markedly thickened. Suggestion of ganglion cyst over dorsal aspect of first TMT joint is seen measures up to 1.2 x 1.2 x 1.7 cm in size. Sagittal images shows plantar plate tear involving second MTP joint at its distal insertion. IMPRESSION: 1. Moderate to severe osteoarthritic changes throughout midfoot and forefoot joints most notably invo lving TMT joints consistent with Charcot's arthropathy. 2. There is suggestion of stress fractures involving first, second, third and fifth metatarsal shaft/ neck as described above. No other fracture or dislocation. 3. Extensor and flexor tendons of forefoot are grossly intact. Sprain of the principal Lisfranc ligam ent. 4. Ganglion cyst over dorsal aspect of first TMT joint as above. 5. Suggestion of plantar plate tear involving second MTP joint at its distal insertion. Reviewed by: Misael Mcfarland MD on 04/18/2023 9:46 PM PDT Approved by: Misael Mcfarland MD on 04/18/2023 9:46 PM PDT Station ID: [id number]
== END 2023-04-18 08:14 | disposition home or self-care (01) ==
LOC: DI 08:13
PROVIDERS: ATTEND Podiatrist
DX: M14.672 Charcot's joint, left ankle and foot (principal); M19.072 Primary osteoarthritis, left ankle and foot; S96.812A Strain of other specified muscles and tendons at ankle and foot level, left foot, initial encounter; S93.402A Sprain of unspecified ligament of left ankle, initial encounter; S93.492A Sprain of other ligament of left ankle, initial encounter; S93.412A Sprain of calcaneofibular ligament of left ankle, initial encounter

== ENCOUNTER 2023-07-04 11:55 | Emergency (ER) | payer MEDICARE, OTHER ==
[2023-07-04 12:13] VITALS: BP 124/64; O2SAT 98
== END 2023-07-04 13:25 | disposition left against medical advice (07) ==
LOC: ED 11:55
DX: Z53.21 Procedure and treatment not carried out due to patient leaving prior to being seen by health care provider (principal)

== ENCOUNTER 2023-12-05 10:07 | Outpatient (CLI) | payer MEDICARE, OTHER ==
--- NOTE | 2023-12-06 11:15 | Mammography Report ---
BILATERAL DIGITAL SCREENING MAMMOGRAM 3D/2D: 12/05/2023 CLINICAL: Routine screening. Comparison is made to exams dated: 10/05/2022 mammogram, 05/27/2021 mammogram, 03/13/2020 mammogram, 02/17 mammogram, 08/02/2017 mammogram, and 10/05/2018 mammogram - [facility]. There are scattered areas of fibroglandular density in both breasts (category b / 25%-50% glandular t issue). No significant masses, calcifications, or other findings are seen in either breast. There has been no significant interval change. IMPRESSION: NEGATIVE There is no mammographic evidence of malignancy. A 1 year screening mammogram is recommended. Based on the Tyrer Cuzick model (a risk assessment model) the patient's lifetime risk is 5.3% and her 10 year risk is 2.8%. According to the ACR, ACS, and NCCN guidelines, an annual breast MRI exam myra g with mammogram is recommended if the patient's lifetime risk is 20% or greater. This exam was interpreted at Station ID: [id number]. NOTE: For mammograms, a report in lay terms will be sent to the patient. Approximately 15% of breast malignancies will not be visualized mammographically. In the management of a palpable breast mass, a negative mammogram must not discourage biopsy of a clinically suspicious lesion. Electronically Signed By: Damir woodward/kameron:12/05/2023 16:01:25 letter sent: No_Letter ACR BI-RADS Category 1: Negative 3341F PARENCHYMAL PATTERN: (A) - The breast(s) demonstrate(s) scattered fibroglandular densities. BI-RADS CATEGORY: (1) - 1 RECOMMENDATION: (ANNUAL) - Recommend routine annual screening mammography. [id number] 1 year screening LATERALITY: (B)
== END 2023-12-05 10:08 | disposition home or self-care (01) ==
LOC: DI 10:07
DX: Z12.31 Encounter for screening mammogram for malignant neoplasm of breast (principal); R92.323 Mammographic fibroglandular density, bilateral breasts